=== PATIENT | male | born 1985 | race Native Hawaiian/Other Pacific Islander ===

== ENCOUNTER 2017-03-18 23:41 | Emergency (ER) | payer SELFPAY ==
[2017-03-19 02:22] VITALS: BP 123/70
== END 2017-03-19 02:22 | disposition home or self-care (01) ==
LOC: ED 23:41
DX: L50.9 Urticaria, unspecified (principal); J98.01 Acute bronchospasm
CPT/HCPCS: J1100; J7613; Q0163